=== PATIENT | male | born 1930 | race Caucasian/White ===

== ENCOUNTER 2017-12-14 22:19 | Inpatient (IN) | payer MEDICARE, OTHER ==
[~2017-12-14] VITALS: Ht 180.3 cm; Wt 72.7 kg
[~2017-12-14 22:19] MED LIST: ALBU18HF2 INH; ARA20T PO; CALC200T29 PO; CHOL100046 PO; DABI150C PO; DILT240C PO; DULR RC; FINA5TAB11 PO; FLO0.4C PO; FURO-150 PO; GABA-532 PO; GLUC1KIT IM; HYDR200T84 PO; INSU100C4 SQ; LANTUS SUBCUT; LIDO700A5 TP; LOPE-144; OXYC-580 PO; OXYC10TA57 PO; POLY17PO2 PO; POTA10TA36 PO; PRAV40TA3 PO; PRED5TAB PO; SENN-25 PO
[2017-12-14 22:44] LABS: BASOPHILS % (AUTO) 0.4 % (0-1); EOSINOPHILS # (AUTO) 0.1 X10'3 (0-0.9); EOSINOPHILS % (AUTO) 0.9 % (0-6); HEMATOCRIT 41.9 % (42.0-52.0); HEMOGLOBIN 13.9 g/dl (14.0-17.9); LYMPHOCYTES # (AUTO) 0.4 X10'3 (1.1-4.8); MEAN CORPUSCULAR HEMOGLOBIN 28.2 PG (27.0-31.0); MEAN CORPUSCULAR HGB CONC 33.2 % (33.0-36.5); MEAN PLATELET VOLUME 7.8 FL (7.4-10.4); MONOCYTES # (AUTO) 0.7 X10'3 (0-0.9); MONOCYTES % (AUTO) 5.5 % (2-12); NEUTROPHILS # (AUTO) 11.4 X10'3 (1.8-7.7); NEUTROPHILS % (AUTO) 90.2 % (42-75); PLATELET COUNT 180 X10'3 (140-440); RED BLOOD COUNT 4.93 X10'6 (4.70-6.10); WHITE BLOOD COUNT 12.6 X10'3 (4.5-11.0)
[2017-12-14 22:57] LABS: INR 1.4 INR; PARTIAL THROMBOPLASTIN TIME 47 SECONDS (22-32); PROTHROMBIN TIME 14.6 SECONDS (9.0-12.0)
[2017-12-14 23:02] LABS: ALANINE AMINOTRANSFERASE 18 U/L (12-78); ALBUMIN 2.8 G/DL (3.4-5.0); ALBUMIN/GLOBULIN RATIO 0.7 (1.1-1.5); ALKALINE PHOSPHATASE 62 IU/L (46-116); ANION GAP 8 (8-16); ASPARTATE AMINO TRANSFERASE 22 U/L (10-37); BILIRUBIN,TOTAL 0.4 MG/DL (0.1-1.0); BLOOD UREA NITROGEN 38 MG/DL (7-18); BUN/CREATININE RATIO 29.2 (5.4-32.0); CHLORIDE 97 MMOL/L (99-107); GLUCOSE 154 MG/DL (70-104); POTASSIUM 4.9 MMOL/L (3.5-5.1); SODIUM 134 MMOL/L (135-145); TOTAL PROTEIN 6.7 G/DL (6.4-8.2); eGFR 52 ML/MIN
[2017-12-15] MEDS ORDERED: FURO-150 PO (01:37)
[2017-12-15] MEDS ORDERED: HYDROcodone/acetaminophen 10/325mg tab PO ONE (03:00)
[2017-12-15] MEDS ORDERED: vancomycin inj 1,000 MG in normal saline 250ml IV soln 250 ML IV STA (03:37)
[2017-12-15] MEDS ORDERED: normal saline 1000ml 1,000 ML IV SCH (04:12)
[2017-12-15] MEDS ORDERED: ondansetron/PF 4mg/2ml inj IV PRN ×2 (04:15→04:35)
[2017-12-15] MEDS ORDERED: mag hydrox/Alum hydrox/simeth 30ml oral suspension PO PRN ×2 (04:15→04:35)
[2017-12-15] MEDS ORDERED: morphine 4 MG/ML inj SYRINge IV PRN ×4 (04:15→04:35)
[2017-12-15] MEDS ORDERED: acetaminophen 325mg tablet PO PRN ×4 (04:15→04:35)
[2017-12-15] MEDS ORDERED: magnesium hydroxide 30ml (MOM) UD suspension PO PRN ×2 (04:15→04:35)
[2017-12-15] MEDS ORDERED: bisacodyl 10mg suppository rectal RC PRN (04:40)
[2017-12-15] MEDS ORDERED: dextrose 50%-water 50ml dispensing syringe IV PRN ×2 (04:40)
[2017-12-15] MEDS ORDERED: glucagon, human recombinant 1mg kit SUBCUT PRN (04:40)
[2017-12-15] MEDS ORDERED: polyethylene glycol 3350 17gm powd pack PO PRN (04:40)
[2017-12-15] MEDS ORDERED: dextrose ORAL solution 15 GM/59 ML bottle PO PRN ×2 (04:40)
[2017-12-15] MEDS ORDERED: MESSAGE TO PHARMACY PO ONE (04:40)
[2017-12-15] MEDS ORDERED: non-formulary drug (Albuterol Sulfate (Ventolin Hfa) 2 PUFFS) INH PRN (04:40)
[2017-12-15] MEDS ORDERED: vancomycin/NS 1 GM ADD-VANTAGE 250 ML IV ONE (05:25)
[2017-12-15] MEDS: normal saline 1000ml 1,000 ML IV SCH ×3 (05:34→23:34)
[2017-12-15] MEDS ORDERED: piperacillin/tazo 3.375gm/50ml 50 ML IV SCH ×2 (08:00)
[2017-12-15] MEDS ORDERED: enoxaparin 40mg/0.4ml syringe SUBCUT SCH (08:00)
[2017-12-15] MEDS ORDERED: docusate sod 100mg capsule PO SCH (08:00)
[2017-12-15] MEDS: tamsulosin 0.4mg capsule PO SCH (08:26)
[2017-12-15] MEDS: oxyCODONE SR 10mg (sust. release) tab PO SCH ×2 (08:26→20:31)
[2017-12-15] MEDS: predniSONE 5mg tablet PO SCH (08:26)
[2017-12-15] MEDS: leflunomide 20mg tablet PO SCH (09:16)
[2017-12-15] MEDS: hydroxychloroquine 200mg tablet PO SCH (09:17)
[2017-12-15] MEDS: finasteride 5mg tablet PO SCH (09:17)
[2017-12-15] MEDS: dabigatran 150mg capsule PO SCH ×2 (09:17→20:31)
[2017-12-15] MEDS: piperacillin/tazo 3.375gm/50ml 50 ML IV SCH ×3 (09:25→20:58)
[2017-12-15] MEDS: albuterol 2.5 MG/3 ML nebule NEB SCH ×3 (10:09→20:52)
[2017-12-15 12:00] LABS: BASOPHILS % (AUTO) 0.4 % (0-1); EOSINOPHILS % (AUTO) 0 % (0-6); HEMOGLOBIN 14.6 g/dl (14.0-17.9); LYMPHOCYTES # (AUTO) 0.3 X10'3 (1.1-4.8); LYMPHOCYTES % (AUTO) 2.9 % (21-51); MEAN CORPUSCULAR HEMOGLOBIN 28.3 PG (27.0-31.0); MEAN CORPUSCULAR HGB CONC 33.2 % (33.0-36.5); MEAN CORPUSCULAR VOLUME 85.3 FL (78-98); MEAN PLATELET VOLUME 8.2 FL (7.4-10.4); MONOCYTES # (AUTO) 0.6 X10'3 (0-0.9); MONOCYTES % (AUTO) 5.3 % (2-12); NEUTROPHILS % (AUTO) 91.4 % (42-75); PLATELET COUNT 178 X10'3 (140-440); RED BLOOD COUNT 5.16 X10'6 (4.70-6.10); RED CELL DISTRIBUTION WIDTH 16.9 % (11.5-14.5); WHITE BLOOD COUNT 12.1 X10'3 (4.5-11.0)
[2017-12-15 12:14] LABS: ALANINE AMINOTRANSFERASE 23 U/L (12-78); ALBUMIN 2.7 G/DL (3.4-5.0); ALBUMIN/GLOBULIN RATIO 0.6 (1.1-1.5); ALKALINE PHOSPHATASE 63 IU/L (46-116); ANION GAP 10 (8-16); ASPARTATE AMINO TRANSFERASE 19 U/L (10-37); BILIRUBIN,TOTAL 0.5 MG/DL (0.1-1.0); BLOOD UREA NITROGEN 31 MG/DL (7-18); CALCIUM 9.3 MG/DL (8.5-10.1); CHLORIDE 98 MMOL/L (99-107); CREATININE 1.15 MG/DL (0.60-1.10); GLUCOSE 275 MG/DL (70-104); POTASSIUM 4.8 MMOL/L (3.5-5.1); SODIUM 136 MMOL/L (135-145); TOTAL CARBON DIOXIDE 28.3 MMOL/L (24-32); eGFR 60 ML/MIN
[2017-12-15 13:22] VITALS: BP 123/75
[2017-12-15] MEDS ORDERED: diltiazem 30mg tablet PO ONE (13:25)
[2017-12-15] MEDS: oxyCODONE IR 5mg (immed. release) tablet PO PRN ×2 (14:16→23:26)
[2017-12-15 16:07] VITALS: BP 152/105
[2017-12-15] MEDS ORDERED: diltiazem-NS 100mg/100ml 100 ML IV SCH (17:55)
[2017-12-15] MEDS: insulin Lispro (HumaLOG) vial - multi-dose SQ SCH (18:54)
[2017-12-15] MEDS ORDERED: diltiazem CD 180mg cap (once-daily) PO ONE (18:55)
[2017-12-15 19:00] VITALS: BP 143/76
[2017-12-15] MEDS ORDERED: diltiazem 30mg tablet PO SCH (20:00)
[2017-12-15] MEDS: pravastatin 40mg tablet PO SCH (20:31)
[2017-12-15] MEDS: gabapentin 300mg capsule PO SCH (20:31)
[2017-12-15] MEDS: lactobacillus rhamnosus 10,000 MMU CELLS/CAPSULE PO SCH (20:31)
[2017-12-15] MEDS ORDERED: insulin glargine (Lantus) pen - multi-dose SQ SCH (21:00)
[2017-12-15 23:00] VITALS: BP 158/75
[2017-12-16] MEDS: piperacillin/tazo 3.375gm/50ml 50 ML IV SCH ×4 (01:44→21:26)
[2017-12-16] MEDS: albuterol 2.5 MG/3 ML nebule NEB SCH ×4 (02:20→20:30)
[2017-12-16 03:00] VITALS: BP 131/86
[2017-12-16] MEDS ORDERED: vancomycin/NS 1 GM ADD-VANTAGE 250 ML IV SCH (05:00)
[2017-12-16 06:00] VITALS: BP 150/80
[2017-12-16 06:13] LABS: BASOPHILS % (AUTO) 0.4 % (0-1); EOSINOPHILS # (AUTO) 0.2 X10'3 (0-0.9); EOSINOPHILS % (AUTO) 2.4 % (0-6); HEMATOCRIT 42.6 % (42.0-52.0); HEMOGLOBIN 14.2 g/dl (14.0-17.9); LYMPHOCYTES # (AUTO) 0.9 X10'3 (1.1-4.8); LYMPHOCYTES % (AUTO) 10.1 % (21-51); MEAN CORPUSCULAR HEMOGLOBIN 28.6 PG (27.0-31.0); MEAN CORPUSCULAR HGB CONC 33.4 % (33.0-36.5); MEAN CORPUSCULAR VOLUME 85.5 FL (78-98); MEAN PLATELET VOLUME 7.7 FL (7.4-10.4); MONOCYTES # (AUTO) 0.8 X10'3 (0-0.9); MONOCYTES % (AUTO) 9.9 % (2-12); NEUTROPHILS # (AUTO) 6.5 X10'3 (1.8-7.7); NEUTROPHILS % (AUTO) 77.2 % (42-75); PLATELET COUNT 189 X10'3 (140-440); RED BLOOD COUNT 4.99 X10'6 (4.70-6.10); RED CELL DISTRIBUTION WIDTH 16.7 % (11.5-14.5); WHITE BLOOD COUNT 8.4 X10'3 (4.5-11.0)
[2017-12-16 06:33] LABS: ALBUMIN 2.4 G/DL (3.4-5.0); ANION GAP 6 (8-16); BLOOD UREA NITROGEN 21 MG/DL (7-18); BUN/CREATININE RATIO 20.2 (5.4-32.0); CALCIUM 8.8 MG/DL (8.5-10.1); CHLORIDE 106 MMOL/L (99-107); CREATININE 1.04 MG/DL (0.60-1.10); GLUCOSE 77 MG/DL (70-104); POTASSIUM 3.8 MMOL/L (3.5-5.1); SODIUM 143 MMOL/L (135-145); TOTAL CARBON DIOXIDE 31.1 MMOL/L (24-32); eGFR 68 ML/MIN
[2017-12-16] MEDS: tamsulosin 0.4mg capsule PO SCH (07:46)
[2017-12-16] MEDS: hydroxychloroquine 200mg tablet PO SCH (07:46)
[2017-12-16] MEDS: dabigatran 150mg capsule PO SCH ×2 (07:47→21:26)
[2017-12-16] MEDS: finasteride 5mg tablet PO SCH (07:47)
[2017-12-16] MEDS: leflunomide 20mg tablet PO SCH (07:47)
[2017-12-16] MEDS: predniSONE 5mg tablet PO SCH (07:47)
[2017-12-16] MEDS: oxyCODONE SR 10mg (sust. release) tab PO SCH ×2 (07:47→21:25)
[2017-12-16] MEDS: lactobacillus rhamnosus 10,000 MMU CELLS/CAPSULE PO SCH ×2 (07:47→21:25)
[2017-12-16 10:37] LABS: HEMOGLOBIN A1C 7.5 % (4.5-6.2)
[2017-12-16] MEDS: normal saline 1000ml 1,000 ML IV SCH (10:53)
[2017-12-16 11:00] VITALS: BP 98/75
[2017-12-16] MEDS: diltiazem CD 120mg capsule (once-daily) PO SCH (12:00)
[2017-12-16] MEDS: insulin Lispro (HumaLOG) vial - multi-dose SQ SCH (13:51)
[2017-12-16 15:00] VITALS: BP 141/75
[2017-12-16] MEDS: vancomycin/NS 1 GM ADD-VANTAGE 250 ML IV SCH (17:01)
[2017-12-16 19:00] VITALS: BP 148/68
[2017-12-16] MEDS: pravastatin 40mg tablet PO SCH (21:25)
[2017-12-16] MEDS: gabapentin 300mg capsule PO SCH (21:25)
[2017-12-16] MEDS: insulin glargine (Lantus) pen - multi-dose SQ SCH (21:27)
[2017-12-16 23:00] VITALS: BP 152/96
[2017-12-17] MEDS: piperacillin/tazo 3.375gm/50ml 50 ML IV SCH ×4 (02:45→21:21)
[2017-12-17 03:00] VITALS: BP 152/92
[2017-12-17] MEDS: vancomycin/NS 1 GM ADD-VANTAGE 250 ML IV SCH ×2 (05:13→16:40)
[2017-12-17 05:39] LABS: BASOPHILS % (AUTO) 0.5 % (0-1); EOSINOPHILS # (AUTO) 0.3 X10'3 (0-0.9); EOSINOPHILS % (AUTO) 3.9 % (0-6); HEMATOCRIT 42.2 % (42.0-52.0); LYMPHOCYTES # (AUTO) 0.8 X10'3 (1.1-4.8); LYMPHOCYTES % (AUTO) 9.1 % (21-51); MEAN CORPUSCULAR HEMOGLOBIN 28.3 PG (27.0-31.0); MEAN CORPUSCULAR HGB CONC 33.2 % (33.0-36.5); MEAN CORPUSCULAR VOLUME 85.1 FL (78-98); MEAN PLATELET VOLUME 7.9 FL (7.4-10.4); MONOCYTES # (AUTO) 0.8 X10'3 (0-0.9); MONOCYTES % (AUTO) 9.6 % (2-12); NEUTROPHILS # (AUTO) 6.6 X10'3 (1.8-7.7); NEUTROPHILS % (AUTO) 76.9 % (42-75); PLATELET COUNT 189 X10'3 (140-440); RED BLOOD COUNT 4.96 X10'6 (4.70-6.10); RED CELL DISTRIBUTION WIDTH 16.8 % (11.5-14.5); WHITE BLOOD COUNT 8.6 X10'3 (4.5-11.0)
[2017-12-17 06:00] VITALS: BP 144/89
[2017-12-17 06:09] LABS: ALBUMIN 2.3 G/DL (3.4-5.0); ANION GAP 7 (8-16); BLOOD UREA NITROGEN 14 MG/DL (7-18); BUN/CREATININE RATIO 14.9 (5.4-32.0); CALCIUM 8.5 MG/DL (8.5-10.1); CHLORIDE 105 MMOL/L (99-107); CREATININE 0.94 MG/DL (0.60-1.10); GLUCOSE 235 MG/DL (70-104); POTASSIUM 3.5 MMOL/L (3.5-5.1); SODIUM 141 MMOL/L (135-145); TOTAL CARBON DIOXIDE 28.6 MMOL/L (24-32); eGFR 76 ML/MIN
[2017-12-17] MEDS: albuterol 2.5 MG/3 ML nebule NEB SCH ×5 (07:56→20:25)
[2017-12-17] MEDS: dabigatran 150mg capsule PO SCH ×2 (08:28→19:37)
[2017-12-17] MEDS: lactobacillus rhamnosus 10,000 MMU CELLS/CAPSULE PO SCH ×2 (08:29→19:39)
[2017-12-17] MEDS: finasteride 5mg tablet PO SCH (08:29)
[2017-12-17] MEDS: diltiazem CD 120mg capsule (once-daily) PO SCH (08:29)
[2017-12-17] MEDS: predniSONE 5mg tablet PO SCH (08:29)
[2017-12-17] MEDS: oxyCODONE SR 10mg (sust. release) tab PO SCH ×2 (08:29→19:39)
[2017-12-17] MEDS: tamsulosin 0.4mg capsule PO SCH (08:44)
[2017-12-17] MEDS: insulin Lispro (HumaLOG) vial - multi-dose SQ SCH ×3 (09:35→19:35)
[2017-12-17] MEDS ORDERED: LEVO500T2 PO (10:53)
[2017-12-17 11:00] VITALS: BP 135/84
[2017-12-17] MEDS: oxyCODONE IR 5mg (immed. release) tablet PO PRN ×2 (14:36→23:10)
[2017-12-17 15:00] VITALS: BP 131/72
[2017-12-17] MEDS ORDERED: VANCOMYCIN LEVEL IV ONE (16:30)
[2017-12-17 19:00] VITALS: BP 155/76
[2017-12-17] MEDS: gabapentin 300mg capsule PO SCH (21:20)
[2017-12-17] MEDS: pravastatin 40mg tablet PO SCH (21:21)
[2017-12-17] MEDS: insulin glargine (Lantus) pen - multi-dose SQ SCH (21:27)
[2017-12-17 23:00] VITALS: BP 141/83
[2017-12-18] MEDS: piperacillin/tazo 3.375gm/50ml 50 ML IV SCH ×2 (00:57→08:36)
[2017-12-18] MEDS: albuterol 2.5 MG/3 ML nebule NEB SCH ×2 (02:30→08:00)
[2017-12-18 03:00] VITALS: BP 133/85
[2017-12-18] MEDS: oxyCODONE IR 5mg (immed. release) tablet PO PRN (04:10)
[2017-12-18] MEDS ORDERED: vancomycin inj 1,250 MG in normal saline 250ml IV soln 250 ML IV SCH (05:00)
[2017-12-18 05:16] LABS: BASOPHILS % (AUTO) 0.3 % (0-1); EOSINOPHILS # (AUTO) 0.5 X10'3 (0-0.9); EOSINOPHILS % (AUTO) 5.4 % (0-6); HEMATOCRIT 43.5 % (42.0-52.0); HEMOGLOBIN 14.4 g/dl (14.0-17.9); LYMPHOCYTES # (AUTO) 0.9 X10'3 (1.1-4.8); LYMPHOCYTES % (AUTO) 9.1 % (21-51); MEAN CORPUSCULAR HEMOGLOBIN 28.3 PG (27.0-31.0); MEAN CORPUSCULAR HGB CONC 33.1 % (33.0-36.5); MEAN CORPUSCULAR VOLUME 85.7 FL (78-98); MEAN PLATELET VOLUME 7.7 FL (7.4-10.4); MONOCYTES # (AUTO) 0.7 X10'3 (0-0.9); MONOCYTES % (AUTO) 7.8 % (2-12); NEUTROPHILS # (AUTO) 7.4 X10'3 (1.8-7.7); NEUTROPHILS % (AUTO) 77.4 % (42-75); PLATELET COUNT 191 X10'3 (140-440); RED BLOOD COUNT 5.07 X10'6 (4.70-6.10); RED CELL DISTRIBUTION WIDTH 16.7 % (11.5-14.5); WHITE BLOOD COUNT 9.6 X10'3 (4.5-11.0)
[2017-12-18 05:29] LABS: ALBUMIN 2.3 G/DL (3.4-5.0); ANION GAP 8 (8-16); BLOOD UREA NITROGEN 13 MG/DL (7-18); BUN/CREATININE RATIO 14.3 (5.4-32.0); CALCIUM 8.6 MG/DL (8.5-10.1); CHLORIDE 104 MMOL/L (99-107); CREATININE 0.91 MG/DL (0.60-1.10); GLUCOSE 162 MG/DL (70-104); POTASSIUM 3.1 MMOL/L (3.5-5.1); SODIUM 140 MMOL/L (135-145); TOTAL CARBON DIOXIDE 28.2 MMOL/L (24-32); eGFR 79 ML/MIN
[2017-12-18 06:00] VITALS: BP 137/87
[2017-12-18] MEDS: diltiazem CD 120mg capsule (once-daily) PO SCH (08:34)
[2017-12-18] MEDS: tamsulosin 0.4mg capsule PO SCH (08:34)
[2017-12-18] MEDS: lactobacillus rhamnosus 10,000 MMU CELLS/CAPSULE PO SCH (08:34)
[2017-12-18] MEDS: oxyCODONE SR 10mg (sust. release) tab PO SCH (08:34)
[2017-12-18] MEDS: predniSONE 5mg tablet PO SCH (08:34)
[2017-12-18] MEDS: insulin Lispro (HumaLOG) vial - multi-dose SQ SCH (10:25)
[2017-12-19] MEDS ORDERED: VANCOMYCIN LEVEL IV ONE (16:30)
== END 2017-12-18 10:30 | disposition home or self-care (01) | DRG 871 ==
LOC: ER 22:19 → ED HOLD 12-15 04:34 → EDBEDREQSVC 12-15 11:31 → SUR 3N 12-15 12:50 → PCU 3S 12-15 16:05
PROVIDERS: ADMIT Internal Medicine; ATTEND Internal Medicine
DX: A41.9 Sepsis, unspecified organism (principal); J18.1 Lobar pneumonia, unspecified organism; J96.01 Acute respiratory failure with hypoxia; I11.0 Hypertensive heart disease with heart failure; N17.9 Acute kidney failure, unspecified; I95.9 Hypotension, unspecified; I50.22 Chronic systolic (congestive) heart failure; I48.2 Chronic atrial fibrillation; J44.0 Chronic obstructive pulmonary disease with (acute) lower respiratory infection; J98.11 Atelectasis; E86.0 Dehydration; E11.9 Type 2 diabetes mellitus without complications; E78.5 Hyperlipidemia, unspecified; F03.90 Unspecified dementia, unspecified severity, without behavioral disturbance, psychotic disturbance, mood disturbance, and anxiety; M06.9 Rheumatoid arthritis, unspecified; N40.0 Benign prostatic hyperplasia without lower urinary tract symptoms; Y95 Nosocomial condition; G89.29 Other chronic pain; M54.9 Dorsalgia, unspecified; Z66 Do not resuscitate; Z79.01 Long term (current) use of anticoagulants; Z79.899 Other long term (current) drug therapy
CPT/HCPCS: 36415; 71045; 71250; 80048; 80053; 80202; 82948; 83036; 83605; 84484; 85025; 85610; 85730; 87040; 87070; 87502; 87503; 93005; 94640; 94760; 99285; A6213; A6250; J1815; J2543; J3370; J7030; J7512

== ENCOUNTER 2018-02-16 11:04 | Inpatient (IN) | payer MEDICARE, OTHER ==
[~2018-02-16] VITALS: Ht 167.6 cm; Wt 76.0 kg
[~2018-02-16 11:04] MED LIST changes: -ARA20T PO; -CALC200T29 PO; -FURO-150 PO; -HYDR200T84 PO; -INSU100C4 SQ; -LANTUS SUBCUT; -LIDO700A5 TP; -SENN-25 PO
[2018-02-16] MEDS ORDERED: normal saline 1000ML IV soln IV ONE (11:20)
[2018-02-16] MEDS ORDERED: vancomycin/NS 1 GM ADD-VANTAGE 250 ML IV ONE (11:20)
[2018-02-16] MEDS ORDERED: piperacillin/tazo 3.375gm/50ml 50 ML IV ONE (11:20)
[2018-02-16 11:46] LABS: BASOPHILS % (AUTO) 0.1 % (0-1); EOSINOPHILS % (AUTO) 0.2 % (0-6); HEMATOCRIT 52.5 % (42.0-52.0); LYMPHOCYTES # (AUTO) 0.2 X10'3 (1.1-4.8); LYMPHOCYTES % (AUTO) 1.2 % (21-51); MEAN CORPUSCULAR HEMOGLOBIN 27.1 PG (27.0-31.0); MEAN CORPUSCULAR HGB CONC 32.5 % (33.0-36.5); MEAN CORPUSCULAR VOLUME 83.6 FL (78-98); MEAN PLATELET VOLUME 7.5 FL (7.4-10.4); MONOCYTES # (AUTO) 0.4 X10'3 (0-0.9); MONOCYTES % (AUTO) 2.2 % (2-12); NEUTROPHILS # (AUTO) 16.5 X10'3 (1.8-7.7); NEUTROPHILS % (AUTO) 96.3 % (42-75); PLATELET COUNT 214 X10'3 (140-440); RED BLOOD COUNT 6.28 X10'6 (4.70-6.10); RED CELL DISTRIBUTION WIDTH 17.4 % (11.5-14.5); WHITE BLOOD COUNT 17.1 X10'3 (4.5-11.0)
[2018-02-16 11:58] LABS: INR 1.1 INR; PARTIAL THROMBOPLASTIN TIME 36 SECONDS (22-32); PROTHROMBIN TIME 11.5 SECONDS (9.0-12.0)
[2018-02-16 12:05] LABS: ANISOCYTOSIS 1+; PLATELET ESTIMATE NORMAL; TOTAL CELLS COUNTED 100; TOXIC GRANULATION 1+; TOXIC VACUOLATION 1+
[2018-02-16 12:12] LABS: ALANINE AMINOTRANSFERASE 18 U/L (12-78); ALBUMIN 3.1 G/DL (3.4-5.0); ALBUMIN/GLOBULIN RATIO 0.6 (1.1-1.5); ALKALINE PHOSPHATASE 100 IU/L (46-116); ANION GAP 10 (8-16); ASPARTATE AMINO TRANSFERASE 19 U/L (10-37); BILIRUBIN,TOTAL 0.5 MG/DL (0.1-1.0); BLOOD UREA NITROGEN 12 MG/DL (7-18); BUN/CREATININE RATIO 10.5 (5.4-32.0); CALCIUM 9.3 MG/DL (8.5-10.1); CHLORIDE 98 MMOL/L (99-107); CREATININE 1.14 MG/DL (0.60-1.10); GLUCOSE 156 MG/DL (70-104); MAGNESIUM 1.7 MG/DL (1.5-2.4); POTASSIUM 4.1 MMOL/L (3.5-5.1); SODIUM 140 MMOL/L (135-145); TOTAL CARBON DIOXIDE 32.2 MMOL/L (24-32); TOTAL PROTEIN 8.2 G/DL (6.4-8.2); eGFR 61 ML/MIN
[2018-02-16] MEDS ORDERED: aspirin 325mg tablet PO ONE (12:20)
[2018-02-16] MEDS ORDERED: ondansetron/PF 4mg/2ml inj IV PRN (12:45)
[2018-02-16] MEDS ORDERED: potassium Cl 40MEQ/NS 500ml 500 ML IV PRN ×2 (12:45)
[2018-02-16] MEDS ORDERED: acetaminophen 325mg tablet PO PRN (12:45)
[2018-02-16] MEDS: K and/or MAG REPLACEMENT MC SCH (12:45)
[2018-02-16] MEDS ORDERED: mag hydrox/Alum hydrox/simeth 30ml oral suspension PO PRN (12:45)
[2018-02-16] MEDS ORDERED: potassium Cl 20 mEq SR tablet PO PRN ×2 (12:45)
[2018-02-16] MEDS ORDERED: magnesium Cl slow-release 64mg tablet PO PRN (12:45)
[2018-02-16] MEDS ORDERED: magnesium/D5W IVPB 50 ML IV PRN (12:45)
[2018-02-16] MEDS ORDERED: magnesium 4gm in 100ml NS 100 ML IV PRN (12:45)
[2018-02-16] MEDS ORDERED: magnesium hydroxide 30ml (MOM) UD suspension PO PRN (12:45)
[2018-02-16] MEDS ORDERED: MESSAGE TO PHARMACY PO ONE (13:10)
[2018-02-16] MEDS ORDERED: dextrose ORAL solution 15 GM/59 ML bottle PO PRN ×2 (13:10)
[2018-02-16] MEDS ORDERED: glucagon, human recombinant 1mg kit SUBCUT PRN (13:10)
[2018-02-16] MEDS ORDERED: dextrose 50%-water 50ml dispensing syringe IV PRN ×2 (13:10)
[2018-02-16] MEDS ORDERED: HYDR200T84 PO (13:16)
[2018-02-16] MEDS ORDERED: LEVO500T2 PO (13:21)
[2018-02-16 13:22] LABS: CLARITY,URINE CLEAR (Clear); COLOR,URINE YELLOW (Yellow); GLUCOSE, URINE NEGATIVE (Neg); KETONES,URINE NEGATIVE (Neg); LEUKOCYTE ESTERASE ,URINE NEGATIVE (Neg); NITRITES, URINE NEGATIVE (Neg); OCCULT BLOOD,URINE SMALL (Neg); PROTEIN,URINE >=300 mg/dl (Neg); UROBILINOGEN,URINE 0.2 E.U/dL (0.2-1.0)
[2018-02-16 13:27] LABS: UA COLLECTION TYPE STRAIGHT CATH
[2018-02-16 13:29] LABS: BACTERIA,URINE NONE SEEN /HPF (Neg); HYALINE CASTS 0-3 /LPF (NEGATIVE); SQUAMOUS EPITHELIAL CELL,UR NONE SEEN /LPF (FEW); TRANSITIONAL EPI CELLS,URINE FEW /HPF; WBC,URINE 0-4 /HPF (0-4)
[2018-02-16] MEDS ORDERED: nitroGLYCERIN 0.4mg SUBLingual tab SL PRN (13:45)
[2018-02-16] MEDS: tamsulosin 0.4mg capsule PO SCH (13:45)
[2018-02-16] MEDS ORDERED: predniSONE 5mg tablet PO SCH (13:45)
[2018-02-16] MEDS ORDERED: regadenoson 0.4mg/5ml syringe IV ONE (13:45)
[2018-02-16] MEDS ORDERED: CAFFEINE CITRATE 60 MG/3 ML injection vial IV PRN (13:45)
[2018-02-16] MEDS ORDERED: metoprolol tartrate 1mg/ml inj IV PRN (13:45)
[2018-02-16] MEDS: aspirin 325mg tablet PO SCH (13:55)
[2018-02-16] MEDS: azithromycin/NS 500mg/250ml 250 ML IV SCH (14:51)
[2018-02-16 14:54] LABS: HEMOGLOBIN A1C 8.4 % (4.5-6.2)
[2018-02-16] MEDS: methylPREDNISolone sod succ/PF 40mg inj. IV SCH (16:20)
[2018-02-16 17:00] VITALS: BP 117/60
[2018-02-16 18:00] VITALS: BP 116/62
[2018-02-16] MEDS: heparin, porcine 5000 units/ml vial SQ SCH (20:11)
[2018-02-16] MEDS: gabapentin 300mg capsule PO SCH (20:12)
[2018-02-16] MEDS: dabigatran 150mg capsule PO SCH (20:12)
[2018-02-16] MEDS: oxyCODONE SR 10mg (sust. release) tab PO SCH (20:13)
[2018-02-16] MEDS: pravastatin 40mg tablet PO SCH (20:14)
[2018-02-16] MEDS: carVEDilol 3.125mg tablet PO SCH (20:14)
[2018-02-16] MEDS: vancomycin/NS 1 GM ADD-VANTAGE 250 ML IV SCH (20:15)
[2018-02-16] MEDS: insulin glargine (Lantus) pen - multi-dose SQ SCH (21:00)
[2018-02-16 22:00] VITALS: BP 125/70
[2018-02-17] MEDS: methylPREDNISolone sod succ/PF 40mg inj. IV SCH ×3 (00:23→15:23)
[2018-02-17 02:00] VITALS: BP 131/50
[2018-02-17 05:43] LABS: BASOPHILS # (AUTO) 0.2 X10'3 (0-0.2); EOSINOPHILS % (AUTO) 0 % (0-6); HEMATOCRIT 42.2 % (42.0-52.0); LYMPHOCYTES # (AUTO) 0.4 X10'3 (1.1-4.8); LYMPHOCYTES % (AUTO) 2.3 % (21-51); MEAN CORPUSCULAR HEMOGLOBIN 27.5 PG (27.0-31.0); MEAN CORPUSCULAR HGB CONC 33.2 % (33.0-36.5); MEAN CORPUSCULAR VOLUME 82.7 FL (78-98); MEAN PLATELET VOLUME 7.8 FL (7.4-10.4); MONOCYTES # (AUTO) 0.1 X10'3 (0-0.9); MONOCYTES % (AUTO) 0.9 % (2-12); NEUTROPHILS # (AUTO) 15.8 X10'3 (1.8-7.7); NEUTROPHILS % (AUTO) 95.8 % (42-75); PLATELET COUNT 197 X10'3 (140-440); RED CELL DISTRIBUTION WIDTH 17.2 % (11.5-14.5); WHITE BLOOD COUNT 16.5 X10'3 (4.5-11.0)
[2018-02-17 06:01] LABS: ALANINE AMINOTRANSFERASE 15 U/L (12-78); ALBUMIN 2.2 G/DL (3.4-5.0); ALBUMIN/GLOBULIN RATIO 0.5 (1.1-1.5); ANION GAP 9 (8-16); ASPARTATE AMINO TRANSFERASE 12 U/L (10-37); BILIRUBIN,TOTAL 0.3 MG/DL (0.1-1.0); BLOOD UREA NITROGEN 22 MG/DL (7-18); BUN/CREATININE RATIO 19.6 (5.4-32.0); CHLORIDE 103 MMOL/L (99-107); CREATININE 1.12 MG/DL (0.60-1.10); GLUCOSE 287 MG/DL (70-104); MAGNESIUM 1.9 MG/DL (1.5-2.4); POTASSIUM 4.3 MMOL/L (3.5-5.1); SODIUM 138 MMOL/L (135-145); TOTAL CARBON DIOXIDE 26.3 MMOL/L (24-32); TOTAL PROTEIN 6.3 G/DL (6.4-8.2); eGFR 62 ML/MIN
[2018-02-17 06:02] LABS: ALKALINE PHOSPHATASE 72 IU/L (46-116)
[2018-02-17 06:18] LABS: CALCIUM 8.7 MG/DL (8.5-10.1)
[2018-02-17 07:28] VITALS: BP 146/78
[2018-02-17] MEDS: K and/or MAG REPLACEMENT MC SCH (08:00)
[2018-02-17] MEDS: insulin Lispro (HumaLOG) vial - multi-dose SQ SCH ×4 (08:23→21:40)
[2018-02-17] MEDS: heparin, porcine 5000 units/ml vial SQ SCH ×2 (08:28→20:16)
[2018-02-17] MEDS: CefTRIAXone/D5W-Rocephin 1gm 50 ML IV SCH (08:32)
[2018-02-17] MEDS: carVEDilol 3.125mg tablet PO SCH ×2 (08:34→20:14)
[2018-02-17] MEDS: oxyCODONE SR 10mg (sust. release) tab PO SCH ×2 (08:34→20:15)
[2018-02-17] MEDS: diltiazem CD 180mg cap (once-daily) PO SCH (08:35)
[2018-02-17] MEDS: tamsulosin 0.4mg capsule PO SCH (08:35)
[2018-02-17] MEDS: dabigatran 150mg capsule PO SCH ×2 (08:35→20:14)
[2018-02-17] MEDS: aspirin 325mg tablet PO SCH (08:36)
[2018-02-17] MEDS: azithromycin/NS 500mg/250ml 250 ML IV SCH (08:45)
[2018-02-17] MEDS: vancomycin/NS 1 GM ADD-VANTAGE 250 ML IV SCH ×2 (08:46→20:13)
[2018-02-17 12:33] VITALS: BP 111/61
[2018-02-17 19:00] VITALS: BP 146/90
[2018-02-17] MEDS: pravastatin 40mg tablet PO SCH (20:14)
[2018-02-17] MEDS: gabapentin 300mg capsule PO SCH (20:15)
[2018-02-17] MEDS: lactobacillus rhamnosus 10,000 MMU CELLS/CAPSULE PO SCH (20:15)
[2018-02-17] MEDS: insulin glargine (Lantus) pen - multi-dose SQ SCH (21:30)
[2018-02-17 23:00] VITALS: BP 151/79
[2018-02-18] MEDS: methylPREDNISolone sod succ/PF 40mg inj. IV SCH ×3 (00:31→16:05)
[2018-02-18 03:00] VITALS: BP 138/71
[2018-02-18 06:05] LABS: BASOPHILS % (AUTO) 0 % (0-1); EOSINOPHILS % (AUTO) 0 % (0-6); HEMATOCRIT 40.7 % (42.0-52.0); HEMOGLOBIN 13.4 g/dl (14.0-17.9); LYMPHOCYTES # (AUTO) 0.4 X10'3 (1.1-4.8); LYMPHOCYTES % (AUTO) 2.8 % (21-51); MEAN CORPUSCULAR HEMOGLOBIN 27.1 PG (27.0-31.0); MEAN CORPUSCULAR VOLUME 82.1 FL (78-98); MONOCYTES # (AUTO) 0.3 X10'3 (0-0.9); MONOCYTES % (AUTO) 2.3 % (2-12); NEUTROPHILS # (AUTO) 13.9 X10'3 (1.8-7.7); NEUTROPHILS % (AUTO) 94.9 % (42-75); PLATELET COUNT 211 X10'3 (140-440); RED BLOOD COUNT 4.96 X10'6 (4.70-6.10); RED CELL DISTRIBUTION WIDTH 17.7 % (11.5-14.5); WHITE BLOOD COUNT 14.6 X10'3 (4.5-11.0)
[2018-02-18 06:22] LABS: ALANINE AMINOTRANSFERASE 19 U/L (12-78); ALBUMIN 2.1 G/DL (3.4-5.0); ALBUMIN/GLOBULIN RATIO 0.5 (1.1-1.5); ALKALINE PHOSPHATASE 70 IU/L (46-116); ANION GAP 9 (8-16); ASPARTATE AMINO TRANSFERASE 18 U/L (10-37); BILIRUBIN,TOTAL 0.3 MG/DL (0.1-1.0); BLOOD UREA NITROGEN 28 MG/DL (7-18); BUN/CREATININE RATIO 26.4 (5.4-32.0); CALCIUM 8.3 MG/DL (8.5-10.1); CHLORIDE 103 MMOL/L (99-107); CREATININE 1.06 MG/DL (0.60-1.10); GLUCOSE 296 MG/DL (70-104); MAGNESIUM 2.1 MG/DL (1.5-2.4); SODIUM 137 MMOL/L (135-145); TOTAL CARBON DIOXIDE 24.8 MMOL/L (24-32); TOTAL PROTEIN 6.2 G/DL (6.4-8.2); eGFR 66 ML/MIN
[2018-02-18 06:34] VITALS: BP 147/77
[2018-02-18] MEDS: CefTRIAXone/D5W-Rocephin 1gm 50 ML IV SCH (07:32)
[2018-02-18] MEDS: lactobacillus rhamnosus 10,000 MMU CELLS/CAPSULE PO SCH ×2 (07:33→19:16)
[2018-02-18] MEDS: diltiazem CD 180mg cap (once-daily) PO SCH (07:33)
[2018-02-18] MEDS: tamsulosin 0.4mg capsule PO SCH (07:33)
[2018-02-18] MEDS: heparin, porcine 5000 units/ml vial SQ SCH ×2 (07:34→19:24)
[2018-02-18] MEDS: oxyCODONE SR 10mg (sust. release) tab PO SCH ×2 (07:34→19:16)
[2018-02-18] MEDS: dabigatran 150mg capsule PO SCH ×2 (07:39→19:16)
[2018-02-18] MEDS: aspirin 81mg tablet.DR PO SCH (07:39)
[2018-02-18] MEDS: carVEDilol 3.125mg tablet PO SCH ×2 (08:00→19:51)
[2018-02-18] MEDS: K and/or MAG REPLACEMENT MC SCH (08:00)
[2018-02-18] MEDS: vancomycin/NS 1 GM ADD-VANTAGE 250 ML IV SCH ×2 (08:59→19:31)
[2018-02-18] MEDS: insulin Lispro (HumaLOG) vial - multi-dose SQ SCH ×3 (09:08→19:21)
[2018-02-18 11:00] VITALS: BP 113/71
[2018-02-18] MEDS: azithromycin/NS 500mg/250ml 250 ML IV SCH (11:06)
[2018-02-18 15:00] VITALS: BP 96/64
[2018-02-18 19:00] VITALS: BP 90/57
[2018-02-18] MEDS: pravastatin 40mg tablet PO SCH (19:15)
[2018-02-18] MEDS: insulin glargine (Lantus) pen - multi-dose SQ SCH (22:23)
[2018-02-18] MEDS: gabapentin 300mg capsule PO SCH (22:23)
[2018-02-18 23:00] VITALS: BP 147/76
[2018-02-19] VITALS (7 sets, daily range): BP systolic 112–169; BP diastolic 53–82
[2018-02-19] MEDS: methylPREDNISolone sod succ/PF 40mg inj. IV SCH ×3 (01:12→16:09)
[2018-02-19] MEDS: CefTRIAXone/D5W-Rocephin 1gm 50 ML IV SCH (07:24)
[2018-02-19] MEDS: vancomycin/NS 1 GM ADD-VANTAGE 250 ML IV SCH ×2 (07:25→20:24)
[2018-02-19] MEDS: azithromycin/NS 500mg/250ml 250 ML IV SCH (07:25)
[2018-02-19] MEDS: diltiazem CD 180mg cap (once-daily) PO SCH (07:26)
[2018-02-19] MEDS: lactobacillus rhamnosus 10,000 MMU CELLS/CAPSULE PO SCH ×2 (07:26→20:28)
[2018-02-19] MEDS: aspirin 81mg tablet.DR PO SCH (07:26)
[2018-02-19] MEDS: heparin, porcine 5000 units/ml vial SQ SCH ×2 (07:26→21:28)
[2018-02-19] MEDS: tamsulosin 0.4mg capsule PO SCH (07:26)
[2018-02-19] MEDS: carVEDilol 3.125mg tablet PO SCH ×2 (07:26→20:27)
[2018-02-19] MEDS: oxyCODONE SR 10mg (sust. release) tab PO SCH ×2 (07:26→20:28)
[2018-02-19] MEDS ORDERED: VANCOMYCIN LEVEL IV NR (07:30)
[2018-02-19] MEDS: K and/or MAG REPLACEMENT MC SCH (07:42)
[2018-02-19 08:16] LABS: ALANINE AMINOTRANSFERASE 27 U/L (12-78); ALBUMIN 2.6 G/DL (3.4-5.0); ALBUMIN/GLOBULIN RATIO 0.6 (1.1-1.5); ALKALINE PHOSPHATASE 80 IU/L (46-116); ANION GAP 10 (8-16); ASPARTATE AMINO TRANSFERASE 24 U/L (10-37); BILIRUBIN,TOTAL 0.4 MG/DL (0.1-1.0); BLOOD UREA NITROGEN 32 MG/DL (7-18); BUN/CREATININE RATIO 28.1 (5.4-32.0); CALCIUM 8.6 MG/DL (8.5-10.1); CHLORIDE 100 MMOL/L (99-107); CREATININE 1.14 MG/DL (0.60-1.10); GLUCOSE 290 MG/DL (70-104); MAGNESIUM 2.5 MG/DL (1.5-2.4); POTASSIUM 3.7 MMOL/L (3.5-5.1); SODIUM 137 MMOL/L (135-145); TOTAL CARBON DIOXIDE 26.9 MMOL/L (24-32); TOTAL PROTEIN 7.1 G/DL (6.4-8.2); VANCOMYCIN,TROUGH 19.6 UG/ML (6.0-14.0); eGFR 61 ML/MIN
[2018-02-19 08:18] LABS: BASOPHILS # (AUTO) 0.1 X10'3 (0-0.2); EOSINOPHILS % (AUTO) 0 % (0-6); HEMOGLOBIN 15.6 g/dl (14.0-17.9); LYMPHOCYTES # (AUTO) 0.4 X10'3 (1.1-4.8); LYMPHOCYTES % (AUTO) 3.3 % (21-51); MEAN CORPUSCULAR HGB CONC 32.6 % (33.0-36.5); MEAN CORPUSCULAR VOLUME 82.8 FL (78-98); MEAN PLATELET VOLUME 8.1 FL (7.4-10.4); MONOCYTES # (AUTO) 0.2 X10'3 (0-0.9); MONOCYTES % (AUTO) 1.5 % (2-12); NEUTROPHILS # (AUTO) 10.4 X10'3 (1.8-7.7); NEUTROPHILS % (AUTO) 94.2 % (42-75); PLATELET COUNT 216 X10'3 (140-440); RED BLOOD COUNT 5.79 X10'6 (4.70-6.10); RED CELL DISTRIBUTION WIDTH 17.3 % (11.5-14.5)
[2018-02-19 09:08] LABS: ALANINE AMINOTRANSFERASE 24 U/L (12-78); ALBUMIN 2.3 G/DL (3.4-5.0); ALBUMIN/GLOBULIN RATIO 0.6 (1.1-1.5); ALKALINE PHOSPHATASE 70 IU/L (46-116); ANION GAP 7 (8-16); ASPARTATE AMINO TRANSFERASE 20 U/L (10-37); BILIRUBIN,TOTAL 0.4 MG/DL (0.1-1.0); BLOOD UREA NITROGEN 31 MG/DL (7-18); BUN/CREATININE RATIO 28.7 (5.4-32.0); CALCIUM 8.2 MG/DL (8.5-10.1); CHLORIDE 101 MMOL/L (99-107); CREATININE 1.08 MG/DL (0.60-1.10); GLUCOSE 383 MG/DL (70-104); MAGNESIUM 2.2 MG/DL (1.5-2.4); POTASSIUM 3.8 MMOL/L (3.5-5.1); SODIUM 136 MMOL/L (135-145); TOTAL CARBON DIOXIDE 27.8 MMOL/L (24-32); TOTAL PROTEIN 6.4 G/DL (6.4-8.2); eGFR 65 ML/MIN
[2018-02-19] MEDS: dabigatran 150mg capsule PO SCH ×2 (13:05→20:27)
[2018-02-19] MEDS: insulin Lispro (HumaLOG) vial - multi-dose SQ SCH ×2 (13:23→19:39)
[2018-02-19] MEDS: gabapentin 300mg capsule PO SCH (20:27)
[2018-02-19] MEDS: pravastatin 40mg tablet PO SCH (20:27)
[2018-02-19] MEDS: insulin glargine (Lantus) pen - multi-dose SQ SCH (21:32)
[2018-02-20] VITALS (7 sets, daily range): BP systolic 103–156; BP diastolic 55–78
[2018-02-20 06:04] LABS: BASOPHILS % (AUTO) 0.3 % (0-1); EOSINOPHILS % (AUTO) 0 % (0-6); HEMATOCRIT 42.8 % (42.0-52.0); LYMPHOCYTES # (AUTO) 0.4 X10'3 (1.1-4.8); LYMPHOCYTES % (AUTO) 3.3 % (21-51); MEAN CORPUSCULAR HEMOGLOBIN 27.1 PG (27.0-31.0); MEAN CORPUSCULAR HGB CONC 32.8 % (33.0-36.5); MEAN CORPUSCULAR VOLUME 82.7 FL (78-98); MEAN PLATELET VOLUME 7.7 FL (7.4-10.4); MONOCYTES # (AUTO) 0.3 X10'3 (0-0.9); MONOCYTES % (AUTO) 2.7 % (2-12); NEUTROPHILS # (AUTO) 10.4 X10'3 (1.8-7.7); NEUTROPHILS % (AUTO) 93.7 % (42-75); PLATELET COUNT 217 X10'3 (140-440); RED BLOOD COUNT 5.18 X10'6 (4.70-6.10); RED CELL DISTRIBUTION WIDTH 17.3 % (11.5-14.5); WHITE BLOOD COUNT 11.1 X10'3 (4.5-11.0)
[2018-02-20 06:32] LABS: ALANINE AMINOTRANSFERASE 24 U/L (12-78); ALBUMIN 2.2 G/DL (3.4-5.0); ALBUMIN/GLOBULIN RATIO 0.6 (1.1-1.5); ALKALINE PHOSPHATASE 60 IU/L (46-116); ANION GAP 6 (8-16); ASPARTATE AMINO TRANSFERASE 16 U/L (10-37); BILIRUBIN,TOTAL 0.3 MG/DL (0.1-1.0); BLOOD UREA NITROGEN 33 MG/DL (7-18); BUN/CREATININE RATIO 31.7 (5.4-32.0); CALCIUM 8.3 MG/DL (8.5-10.1); CHLORIDE 105 MMOL/L (99-107); CREATININE 1.04 MG/DL (0.60-1.10); GLUCOSE 131 MG/DL (70-104); MAGNESIUM 2.3 MG/DL (1.5-2.4); POTASSIUM 4.1 MMOL/L (3.5-5.1); SODIUM 138 MMOL/L (135-145); TOTAL CARBON DIOXIDE 27.3 MMOL/L (24-32); eGFR 68 ML/MIN
[2018-02-20] MEDS: methylPREDNISolone sod succ/PF 40mg inj. IV SCH ×4 (07:41→23:57)
[2018-02-20] MEDS: CefTRIAXone/D5W-Rocephin 1gm 50 ML IV SCH (07:43)
[2018-02-20] MEDS: lactobacillus rhamnosus 10,000 MMU CELLS/CAPSULE PO SCH ×2 (07:50→20:51)
[2018-02-20] MEDS: aspirin 81mg tablet.DR PO SCH (07:50)
[2018-02-20] MEDS: carVEDilol 3.125mg tablet PO SCH ×2 (07:50→21:19)
[2018-02-20] MEDS: vancomycin/NS 1 GM ADD-VANTAGE 250 ML IV SCH ×2 (07:51→20:50)
[2018-02-20] MEDS: oxyCODONE SR 10mg (sust. release) tab PO SCH ×2 (07:51→20:51)
[2018-02-20] MEDS: diltiazem CD 180mg cap (once-daily) PO SCH (07:51)
[2018-02-20] MEDS: tamsulosin 0.4mg capsule PO SCH (07:51)
[2018-02-20] MEDS: dabigatran 150mg capsule PO SCH ×2 (07:55→20:51)
[2018-02-20] MEDS: K and/or MAG REPLACEMENT MC SCH (08:00)
[2018-02-20] MEDS: insulin Lispro (HumaLOG) vial - multi-dose SQ SCH ×3 (08:05→21:36)
[2018-02-20] MEDS: heparin, porcine 5000 units/ml vial SQ SCH (08:06)
[2018-02-20] MEDS: azithromycin/NS 500mg/250ml 250 ML IV SCH (09:12)
[2018-02-20] MEDS ORDERED: furosemide 40mg/4ml inj IV ONE (14:20)
[2018-02-20] MEDS: levoFLOXACIN-Levaquin 500mg/D5 100 ML IV SCH (14:31)
[2018-02-20] MEDS: ipratropium/albuterol 3ml nebule NEB SCH ×3 (15:00→23:00)
[2018-02-20] MEDS: HYDROcodone/acetaminophen 5mg/325mg tablet PO PRN (17:56)
[2018-02-20] MEDS: pravastatin 40mg tablet PO SCH (20:51)
[2018-02-20] MEDS: gabapentin 300mg capsule PO SCH (20:52)
[2018-02-20] MEDS: insulin glargine (Lantus) pen - multi-dose SQ SCH (21:33)
[2018-02-21 03:00] VITALS: BP 155/71
[2018-02-21] MEDS: ipratropium/albuterol 3ml nebule NEB SCH ×6 (03:00→23:00)
[2018-02-21 05:54] LABS: BASOPHILS # (AUTO) 0.1 X10'3 (0-0.2); BASOPHILS % (AUTO) 0.7 % (0-1); EOSINOPHILS % (AUTO) 0.3 % (0-6); HEMATOCRIT 44.9 % (42.0-52.0); HEMOGLOBIN 14.8 g/dl (14.0-17.9); LYMPHOCYTES # (AUTO) 0.3 X10'3 (1.1-4.8); LYMPHOCYTES % (AUTO) 2.4 % (21-51); MEAN PLATELET VOLUME 8.3 FL (7.4-10.4); MONOCYTES # (AUTO) 0.2 X10'3 (0-0.9); MONOCYTES % (AUTO) 2.4 % (2-12); NEUTROPHILS # (AUTO) 9.8 X10'3 (1.8-7.7); NEUTROPHILS % (AUTO) 94.2 % (42-75); PLATELET COUNT 217 X10'3 (140-440); RED BLOOD COUNT 5.47 X10'6 (4.70-6.10); RED CELL DISTRIBUTION WIDTH 17.8 % (11.5-14.5); WHITE BLOOD COUNT 10.4 X10'3 (4.5-11.0)
[2018-02-21 06:22] LABS: ALANINE AMINOTRANSFERASE 29 U/L (12-78); ALBUMIN 2.3 G/DL (3.4-5.0); ALBUMIN/GLOBULIN RATIO 0.6 (1.1-1.5); ALKALINE PHOSPHATASE 62 IU/L (46-116); ANION GAP 7 (8-16); ASPARTATE AMINO TRANSFERASE 25 U/L (10-37); BILIRUBIN,TOTAL 0.3 MG/DL (0.1-1.0); BLOOD UREA NITROGEN 33 MG/DL (7-18); BUN/CREATININE RATIO 35.9 (5.4-32.0); CALCIUM 7.9 MG/DL (8.5-10.1); CHLORIDE 102 MMOL/L (99-107); CREATININE 0.92 MG/DL (0.60-1.10); GLUCOSE 225 MG/DL (70-104); MAGNESIUM 2.3 MG/DL (1.5-2.4); POTASSIUM 3.4 MMOL/L (3.5-5.1); SODIUM 137 MMOL/L (135-145); TOTAL CARBON DIOXIDE 27.9 MMOL/L (24-32); TOTAL PROTEIN 6.2 G/DL (6.4-8.2); eGFR 78 ML/MIN
[2018-02-21] MEDS ORDERED: potassium Cl 20 mEq SR tablet PO PRN (06:50)
[2018-02-21] MEDS ORDERED: magnesium Cl slow-release 64mg tablet PO PRN (06:50)
[2018-02-21 07:00] VITALS: BP 158/77
[2018-02-21] MEDS: lactobacillus rhamnosus 10,000 MMU CELLS/CAPSULE PO SCH ×2 (07:14→19:22)
[2018-02-21] MEDS: azithromycin 250mg tablet PO SCH (07:15)
[2018-02-21] MEDS: oxyCODONE SR 10mg (sust. release) tab PO SCH ×2 (07:16→19:22)
[2018-02-21] MEDS: potassium Cl 20 mEq SR tablet PO PRN ×3 (07:16→15:37)
[2018-02-21] MEDS: carVEDilol 3.125mg tablet PO SCH ×2 (07:17→19:23)
[2018-02-21] MEDS: diltiazem CD 180mg cap (once-daily) PO SCH (07:17)
[2018-02-21] MEDS: dabigatran 150mg capsule PO SCH ×2 (07:18→19:22)
[2018-02-21] MEDS: tamsulosin 0.4mg capsule PO SCH (07:18)
[2018-02-21] MEDS: aspirin 81mg tablet.DR PO SCH (07:19)
[2018-02-21] MEDS: furosemide 40mg/4ml inj IV SCH (07:22)
[2018-02-21] MEDS: methylPREDNISolone sod succ/PF 40mg inj. IV SCH ×3 (07:22→23:35)
[2018-02-21] MEDS: levoFLOXACIN-Levaquin 500mg/D5 100 ML IV SCH (07:26)
[2018-02-21] MEDS: vancomycin/NS 1 GM ADD-VANTAGE 250 ML IV SCH ×2 (07:26→19:21)
[2018-02-21] MEDS: insulin Lispro (HumaLOG) vial - multi-dose SQ SCH ×3 (07:45→19:16)
[2018-02-21] MEDS: K and/or MAG REPLACEMENT MC SCH (08:13)
[2018-02-21 11:00] VITALS: BP 95/64
[2018-02-21] MEDS: HYDROcodone/acetaminophen 5mg/325mg tablet PO PRN (11:29)
[2018-02-21 15:00] VITALS: BP 105/64
[2018-02-21 19:00] VITALS: BP 116/82
[2018-02-21] MEDS: gabapentin 300mg capsule PO SCH (21:22)
[2018-02-21] MEDS: pravastatin 40mg tablet PO SCH (21:23)
[2018-02-21] MEDS: insulin glargine (Lantus) pen - multi-dose SQ SCH (21:32)
[2018-02-21 23:00] VITALS: BP 95/66
[2018-02-22 03:00] VITALS: BP 103/76
[2018-02-22] MEDS: ipratropium/albuterol 3ml nebule NEB SCH ×3 (03:00→11:34)
[2018-02-22] MEDS: HYDROcodone/acetaminophen 5mg/325mg tablet PO PRN (05:02)
[2018-02-22 06:00] VITALS: BP 119/85
[2018-02-22 06:00] LABS: MAGNESIUM 2.2 MG/DL (1.5-2.4); POTASSIUM 3.8 MMOL/L (3.5-5.1)
[2018-02-22] MEDS: insulin Lispro (HumaLOG) vial - multi-dose SQ SCH (08:34)
[2018-02-22] MEDS: azithromycin 250mg tablet PO SCH (08:38)
[2018-02-22] MEDS: aspirin 81mg tablet.DR PO SCH (08:38)
[2018-02-22] MEDS: oxyCODONE SR 10mg (sust. release) tab PO SCH (08:38)
[2018-02-22] MEDS: lactobacillus rhamnosus 10,000 MMU CELLS/CAPSULE PO SCH (08:38)
[2018-02-22] MEDS: carVEDilol 3.125mg tablet PO SCH (08:38)
[2018-02-22] MEDS: diltiazem CD 180mg cap (once-daily) PO SCH (08:38)
[2018-02-22] MEDS: dabigatran 150mg capsule PO SCH (08:38)
[2018-02-22] MEDS: tamsulosin 0.4mg capsule PO SCH (08:38)
[2018-02-22] MEDS: furosemide 40mg/4ml inj IV SCH (08:39)
[2018-02-22] MEDS: methylPREDNISolone sod succ/PF 40mg inj. IV SCH (08:39)
[2018-02-22] MEDS: levoFLOXACIN-Levaquin 500mg/D5 100 ML IV SCH (08:39)
[2018-02-22] MEDS: vancomycin/NS 1 GM ADD-VANTAGE 250 ML IV SCH (08:39)
[2018-02-22 11:00] VITALS: BP 129/76
== END 2018-02-22 12:20 | DRG 871 ==
LOC: ER 11:04 → ED HOLD 12:44 → PCU 3S 16:52
PROVIDERS: ADMIT Internal Medicine; ATTEND Family Medicine
DX: A41.9 Sepsis, unspecified organism (principal); J96.01 Acute respiratory failure with hypoxia; J18.9 Pneumonia, unspecified organism; I50.43 Acute on chronic combined systolic (congestive) and diastolic (congestive) heart failure; J44.1 Chronic obstructive pulmonary disease with (acute) exacerbation; N17.9 Acute kidney failure, unspecified; J44.0 Chronic obstructive pulmonary disease with (acute) lower respiratory infection; J91.8 Pleural effusion in other conditions classified elsewhere; E11.9 Type 2 diabetes mellitus without complications; E78.00 Pure hypercholesterolemia, unspecified; F03.90 Unspecified dementia, unspecified severity, without behavioral disturbance, psychotic disturbance, mood disturbance, and anxiety; G89.4 Chronic pain syndrome; I48.2 Chronic atrial fibrillation; E87.6 Hypokalemia; N40.0 Benign prostatic hyperplasia without lower urinary tract symptoms; Y95 Nosocomial condition; Z66 Do not resuscitate; Z79.899 Other long term (current) drug therapy; Z87.891 Personal history of nicotine dependence
CPT/HCPCS: 36415; 71045; 71250; 80053; 80202; 81001; 82948; 83036; 83605; 83735; 83880; 84132; 84145; 84484; 85025; 85610; 85730; 87040; 87070; 93005; 93306; 94640; 94760; 96365; 99285; A6212; A6213; A6250; A6257; C1758; J0456; J0696; J1644; J1815; J1940; J1956; J2543; J2920; J3370; J7030